=== PATIENT | male | born 1960 | race Caucasian/White ===

== ENCOUNTER 2018-03-13 22:03 | Inpatient (IN) | payer OTHER ==
[2018-03-13 22:56] LABS: Basophils # (A) 0.1 k/uL (0-0.2); Basophils % (A) 0 %; Eosinophils # (A) 0.2 k/uL (0-0.7); Eosinophils % (A) 2 %; HGB 12.5 gm/dL (13.0-17.5); Lymphocytes # (A) 1.3 k/uL (1.0-4.8); Lymphocytes % (A) 9 %; MCH 30.7 pg (25.0-35.0); MCV 93.1 fL (80.0-100.0); Mean Platelet Volume 6.2; Monocytes # (A) 0.7 k/uL (0-1.0); Monocytes % (A) 5 %; Neutrophils # (A) 12.5 k/uL (1.3-7.7); Neutrophils % (A) 83 %; Platelet Count 351 k/uL (150-450); RBC 4.08 m/uL (4.30-5.90); RDW 12.6 % (11.5-15.5); WBC 14.9 k/uL (3.8-10.6)
[2018-03-13 23:06] LABS: Partial Thromboplastin Time 23.9 sec (22.0-30.0); Prothrombin Time 9.5 sec (9.0-12.0)
--- NOTE | 2018-03-13 23:06 | XR ---
EXAMINATION TYPE: XR toes RT DATE OF EXAM: 03/13/2018 COMPARISON: NONE HISTORY: Pain and osteomyelitis TECHNIQUE: 3 views FINDINGS: There is some soft tissue swelling around the second toe. I see no fracture nor dislocation . I see no focal bone destruction. There is narrowing of the joint spaces. IMPRESSION: Soft tissue swelling. Osteoarthritis. No specific sign of osteomyelitis.
[2018-03-13 23:16] LABS: ALT 27 U/L (21-72); AST 17 U/L (17-59); Alkaline Phosphatase 51 U/L (38-126); Anion Gap 9 mmol/L; Blood Urea Nitrogen 19 mg/dL (9-20); C Reactive Protein 9.7 mg/L (<10.0); Calcium 9.3 mg/dL (8.4-10.2); Carbon Dioxide 28 mmol/L (22-30); Chloride 103 mmol/L (98-107); Glucose 116 mg/dL (74-99); Potassium 4.4 mmol/L (3.5-5.1); Sodium 140 mmol/L (137-145); Total Bilirubin 0.2 mg/dL (0.2-1.3); Total Protein 6.7 g/dL (6.3-8.2)
--- NOTE | 2018-03-13 23:19 | ED ---
Lower Extremity Injury HPI - General Chief Complaint: Extremity Injury, Lower Stated Complaint: OSTEOMYLOSIS Time Seen by Provider: 03/13/18 22:17 Source: patient, RN notes reviewed Mode of arrival: ambulatory Limitations: no limitations - History of Present Illness Initial Comments: 57-year-old male presents emergency Department chief complaint of infection to his right foot second digit. Patient states that this initially started from having sore from his work boot. Patient states he has a hammertoe. Patient states that he has been seeing a business specialist which showed he had early signs of osteomyelitis. He is currently taking Bactrim patient states he also has a [place]. Patient denies any fevers or chills. He is a nondiabetic. - Related Data Home Medications Medication Instructions Recorded Confirmed Aspirin 325 mg PO DAILY 03/13/18 03/13/18 Benazepril HCl 20 mg PO DAILY 03/13/18 03/13/18 Gabapentin [Neurontin] 300 mg PO TID 03/13/18 03/13/18 Hydrochlorothiazide 12.5 mg PO DAILY 03/13/18 03/13/18 glipiZIDE [Glucotrol] 5 mg PO DAILY 03/13/18 03/13/18 metFORMIN HCL [Glucophage] 1,000 mg PO BID 03/13/18 03/13/18 Allergies Allergy/AdvReac Type Severity Reaction Status Date / Time No Known Allergies Allergy Verified 03/13/18 22:18 Review of Systems ROS Statement: Those systems with pertinent positive or pertinent negative responses have been documented in the HPI. ROS Other: All systems not noted in ROS Statement are negative. Past Medical History Past Medical History: Diabetes Mellitus, Hypertension Additional Past Medical History / Comment(s): osteomyelitis, neuropathy to feet. History of Any Multi-Drug Resistant Organisms: None Reported Past Surgical History: No Surgical Hx Reported Past Psychological History: No Psychological Hx Reported Smoking Status: Current every day smoker Past Alcohol Use History: None Reported Past Drug Use History: Cocaine, Marijuana General Exam Limitations: no limitations General appearance: alert, in no apparent distress Head exam: Present: atraumatic, normocephalic, normal inspection Respiratory exam: Present: normal lung sounds bilaterally. Absent: respiratory distress, wheezes, rales, rhonchi, stridor Cardiovascular Exam: Present: regular rate, normal rhythm, normal heart sounds. Absent: systolic murmur, diastolic murmur, rubs, gallop, clicks Extremities exam: Present: other (Right foot second digit there is noted erythema from the MTP region to the distal tip, there is no open sore the dorsal aspect approximately 1 cm in diameter) Skin exam: Present: warm, dry Course Vital Signs 03/13/18 03/13/18 22:06 23:39 Temperature 98.5 F Pulse Rate 84 80 Respiratory 17 16 Rate Blood Pressure 138/72 137/72 O2 Sat by Pulse 97 98 Oximetry Medical Decision Making - Lab Data Result diagrams: 03/13/18 22:43 03/13/18 22:43 Lab Results 03/13/18 03/13/18 03/13/18 Range/Units 22:43 22:43 22:43 WBC 14.9 H (3.8-10.6) k/uL RBC 4.08 L (4.30-5.90) m/uL Hgb 12.5 L (13.0-17.5) gm/dL Hct 38.0 L (39.0-53.0) % MCV 93.1 (80.0-100.0) fL MCH 30.7 (25.0-35.0) pg MCHC 33.0 (31.0-37.0) g/dL RDW 12.6 (11.5-15.5) % Plt Count 351 (150-450) k/uL Neutrophils % 83 % Lymphocytes % 9 % Monocytes % 5 % Eosinophils % 2 % Basophils % 0 % Neutrophils # 12.5 H (1.3-7.7) k/uL Lymphocytes # 1.3 (1.0-4.8) k/uL Monocytes # 0.7 (0-1.0) k/uL Eosinophils # 0.2 (0-0.7) k/uL Basophils # 0.1 (0-0.2) k/uL PT (9.0-12.0) sec INR (<1.2) APTT (22.0-30.0) sec Sodium 140 (137-145) mmol/L Potassium 4.4 (3.5-5.1) mmol/L Chloride 103 (98-107) mmol/L Carbon Dioxide 28 (22-30) mmol/L Anion Gap 9 mmol/L BUN 19 (9-20) mg/dL Creatinine 0.68 (0.66-1.25) mg/dL Est GFR (CKD-EPI)AfAm >90 (>60 ml/min/1.73 sqM) Est GFR (CKD-EPI)NonAf >90 (>60 ml/min/1.73 sqM) Glucose 116 H (74-99) mg/dL Plasma Lactic Acid Ronnell 1.1 (0.7-2.0) mmol/L Calcium 9.3 (8.4-10.2) mg/dL Total Bilirubin 0.2 (0.2-1.3) mg/dL AST 17 (17-59) U/L ALT 27 (21-72) U/L Alkaline Phosphatase 51 (38-126) U/L C-Reactive Protein 9.7 (<10.0) mg/L Total Protein 6.7 (6.3-8.2) g/dL Albumin 4.0 (3.5-5.0) g/dL 03/13/18 Range/Units 22:43 WBC (3.8-10.6) k/uL RBC (4.30-5.90) m/uL Hgb (13.0-17.5) gm/dL Hct (39.0-53.0) % MCV (80.0-100.0) fL MCH (25.0-35.0) pg MCHC (31.0-37.0) g/dL RDW (11.5-15.5) % Plt Count (150-450) k/uL Neutrophils % % Lymphocytes % % Monocytes % % Eosinophils % % Basophils % % Neutrophils # (1.3-7.7) k/uL Lymphocytes # (1.0-4.8) k/uL Monocytes # (0-1.0) k/uL Eosinophils # (0-0.7) k/uL Basophils # (0-0.2) k/uL PT 9.5 (9.0-12.0) sec INR 1.0 (<1.2) APTT 23.9 (22.0-30.0) sec Sodium (137-145) mmol/L Potassium (3.5-5.1) mmol/L Chloride (98-107) mmol/L Carbon Dioxide (22-30) mmol/L Anion Gap mmol/L BUN (9-20) mg/dL Creatinine (0.66-1.25) mg/dL Est GFR (CKD-EPI)AfAm (>60 ml/min/1.73 sqM) Est GFR (CKD-EPI)NonAf (>60 ml/min/1.73 sqM) Glucose (74-99) mg/dL Plasma Lactic Acid Ronnell (0.7-2.0) mmol/L Calcium (8.4-10.2) mg/dL Total Bilirubin (0.2-1.3) mg/dL AST (17-59) U/L ALT (21-72) U/L Alkaline Phosphatase (38-126) U/L C-Reactive Protein (<10.0) mg/L Total Protein (6.3-8.2) g/dL Albumin (3.5-5.0) g/dL Disposition Clinical Impression: Diabetic foot ulcer, Cellulitis of toe of right foot, Failure of outpatient treatment Disposition: ADMITTED IP TO THIS [facility] Condition: Stable Referrals: Nonstaff,Physician [Primary Care Provider] - 1-2 days
[2018-03-14] MEDS ORDERED: ACETAMINOPHEN TAB 325 MG TAB PO PRN (00:04)
[2018-03-14] MEDS ORDERED: PIPERACILLIN-TAZOBACTAM 3.375 GM in DEXTROSE/WATER 1 50ML.BAG IVPB STA (00:05)
[2018-03-14] MEDS ORDERED: VANCOMYCIN IV PER PHARMACY 1 EACH MISC MISCELLANE PRN (00:06)
[2018-03-14] MEDS ORDERED: GABAPENTIN 300 MG CAP PO STA (00:39)
[2018-03-14] MEDS ORDERED: VANCOMYCIN 2,000 MG in SODIUM CHLORIDE 0.9% 500 ML IVPB ONE (01:00)
[2018-03-14] MEDS ORDERED: MORPHINE SULFATE 2 MG/ML SYRINGE IVP PRN (02:06)
[2018-03-14] MEDS ORDERED: guaiFENesin-DM 100-10MG/5ML 10 ML CUP PO PRN (02:07)
--- NOTE | 2018-03-14 02:10 | P.HPIM ---
History of Present Illness H&P Date: 03/14/18 Chief Complaint: right 2nd toe swelling and pain 57-year-old male with history of diabetes mellitus and hypertension. patient presented due to worsening swelling and pain over his right second toe. He reports issues with that toe since October 2017 when he was receiving got short course of Bactrim for possible infection then he followed up with podiatry who recommended surgical amputation over the right second toe due to history of hammertoe and chronic nonhealing ulcer over the dorsum of the second toe due to older fitting shoes. Patient at that time was told that he might be having early signs of osteomyelitis however he was not receiving any antibiotics. Patient then went to [facility] for rehab he cocaine abuse and he didn't get to follow-up with podiatry. Today he noticed progressive swelling and pain of his right second toe and decided to come in here for medical attention. Patient continues to deny any fevers or chills. But he is concerned that might get further infected and causessepsis. In the emergency department x-ray of the right foot did not show any evidence of osteomyelitis. Patient was started on broad-spectrum antibiotics and admitted for further care. Patient denies any fevers or chills, denies any chest pain or trouble breathing , he reports some nasal congestion and nonproductive cough. Otherwise denies any abdominal pain nausea or vomiting denies any changes in his urinary or bowel habits denies any focal neurologic deficits. Review of Systems Pertinent positives as noted in HPI. All other systems were reviewed and are negative Past Medical History Past Medical History: Diabetes Mellitus, Hypertension Additional Past Medical History / Comment(s): osteomyelitis, neuropathy to feet. History of Any Multi-Drug Resistant Organisms: None Reported Past Surgical History: No Surgical Hx Reported Past Psychological History: No Psychological Hx Reported Smoking Status: Current every day smoker Past Alcohol Use History: None Reported Past Drug Use History: Cocaine, Marijuana Medications and Allergies Home Medications Medication Instructions Recorded Confirmed Type Aspirin 325 mg PO DAILY 03/13/18 03/13/18 History Benazepril HCl 20 mg PO DAILY 03/13/18 03/13/18 History Gabapentin [Neurontin] 300 mg PO TID 03/13/18 03/13/18 History Hydrochlorothiazide 12.5 mg PO DAILY 03/13/18 03/13/18 History glipiZIDE [Glucotrol] 5 mg PO DAILY 03/13/18 03/13/18 History metFORMIN HCL [Glucophage] 1,000 mg PO BID 03/13/18 03/13/18 History Allergies Allergy/AdvReac Type Severity Reaction Status Date / Time No Known Allergies Allergy Verified 03/13/18 22:18 Physical Exam Vitals: Vital Signs Temp Pulse Resp BP Pulse Ox 03/13/18 23:39 80 16 137/72 98 03/13/18 22:06 98.5 F 84 17 138/72 97 Intake and Output 03/13/18 03/13/18 03/14/18 14:59 22:59 06:59 Other: Weight 95.254 kg Constitutional: No acute distress, conversant, pleasant Eyes: Anicteric sclerae, moist conjunctiva, no lid-lag Pupils equal round reactive to light ENMT: NC/AT Oropharynx clear, no erythema,or exudates Neck: Supple, FROM, no masses, or JVD No carotid bruits No thyromegaly Lungs: Clear to auscultation Clear to percussion Normal respiratory effort, no accessory muscle use Cardiovascular: Heart regular in rate and rhythm, No murmurs, gallops, or rubs No peripheral edema Abdominal: Soft Nontender, no guarding, rebound or rigidity Abdomen moving with respiration Normoactive bowel sounds No hepatomegaly, No splenomegaly No palpable mass No abdominal wall hernia noted Skin: Normal temperature, tone, texture, turgor No induration No subcutaneous nodules ulceration over the dorsum of the right 2nd toe, with swelling, tenderness to the touch , and drainage of serosanguinous fluid. discoloration lilian the 2nd toe with congestion Extremities: No digital cyanosis No clubbing Pedal pulses intact and symmetrical Radial pulses intact and symmetrical No calf tenderness Psychiatric: Alert and oriented to person, place and time Appropriate affect fair judgment Neuro Muscles Strength 5/5 in all 4 extremities Sensation to light touch grossly present throughout Cranial nerves II-XII grossly intact No focal sensory deficits Lymphatics: no palpable cervical or supraclavicular , or inguinal lymph nodes Results CBC & Chem 7: 03/13/18 22:43 03/13/18 22:43 Labs: Abnormal Lab Results - Last 24 Hours (Table) 03/13/18 03/13/18 Range/Units 22:43 22:43 WBC 14.9 H (3.8-10.6) k/uL RBC 4.08 L (4.30-5.90) m/uL Hgb 12.5 L (13.0-17.5) gm/dL Hct 38.0 L (39.0-53.0) % Neutrophils # 12.5 H (1.3-7.7) k/uL Glucose 116 H (74-99) mg/dL Assessment and Plan Assessment: 57 year old male wt history of DM, HTN. admitted as inpatient with anticipated length of stay >48 hours, for diabetic foot infection of the right 2nd toe. 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 patient was admitted to [facility] for rehab due to cocaine abuse , and could not follow up for the past 2-3 weeks. today presented due to worsening swelling and pain in the right second toe Plan: diabetic foot infection of the right 2nd toe, rule out osteomyelitis local wound care podiatry consult adán and jamari pain control check ESR, CRP consider MRI of the foot leukocytosis 2/2 to above Diabetes mellitus , controlled continue with insulin sliding scale hypertension , controlled contiinue with home meds Anemia, patient denies any bleeding monitor DVT PPx heparin sc tid URI symptomatic control loratadin robitussin PRN tobacco smoking, cocaine abuse patient counseled to quit drug of abuse, nicotine replacement therapy offered Surrogate decision-maker: patient brother janell CODE STATUS:full code Discussed with: Patient, ER, RN Anticipated discharge: 48-[address]: home A total of 60 minutes was spent on the care of this complex patient more than 50 % of the time was spent in counseling and care coordination.
[2018-03-14] MEDS: PIPERACILLIN-TAZOBACTAM 3.375 GM in DEXTROSE/WATER 1 50ML.BAG IVPB SCH ×3 (07:44→20:49)
[2018-03-14 07:45] LABS: Glucose,Whole Blood 152 mg/dL (75-99)
[2018-03-14] MEDS: INSULIN ASPART 100 UNIT/ML 1 ML 10 ML VIAL SQ SCH ×4 (07:52→20:10)
[2018-03-14] MEDS: LISINOPRIL 20 MG TAB PO SCH (07:53)
[2018-03-14] MEDS: GABAPENTIN 300 MG CAP PO SCH ×3 (07:53→20:49)
[2018-03-14] MEDS: LORATADINE 10 MG TAB PO SCH (07:55)
[2018-03-14] MEDS: NICOTINE 21MG/24HR PATCH TRANSDERM SCH (07:55)
[2018-03-14] MEDS: HYDROCHLOROTHIAZIDE 12.5 MG CAP PO SCH (08:00)
[2018-03-14] MEDS: HEPARIN SODIUM,PORCINE 5,000 UNIT/ML 1 ML VIAL SQ SCH ×2 (08:00→17:02)
[2018-03-14 08:53] LABS: Basophils # (A) 0.1 k/uL (0-0.2); Basophils % (A) 0 %; Eosinophils # (A) 0.2 k/uL (0-0.7); Eosinophils % (A) 2 %; HGB 12.1 gm/dL (13.0-17.5); Lymphocytes # (A) 1.1 k/uL (1.0-4.8); Lymphocytes % (A) 9 %; MCH 30.9 pg (25.0-35.0); MCHC 32.9 g/dL (31.0-37.0); MCV 94.1 fL (80.0-100.0); Mean Platelet Volume 6.6; Monocytes # (A) 0.6 k/uL (0-1.0); Monocytes % (A) 5 %; Neutrophils # (A) 10.1 k/uL (1.3-7.7); Neutrophils % (A) 83 %; Platelet Count 322 k/uL (150-450); RBC 3.93 m/uL (4.30-5.90); RDW 12.6 % (11.5-15.5); WBC 12.2 k/uL (3.8-10.6)
[2018-03-14] MEDS ORDERED: metFORMIN 500 MG TAB PO SCH (09:00)
[2018-03-14] MEDS ORDERED: glipiZIDE 5 MG TAB PO SCH (09:00)
[2018-03-14 09:03] LABS: ALT 23 U/L (21-72); AST 14 U/L (17-59); Albumin 3.4 g/dL (3.5-5.0); Alkaline Phosphatase 47 U/L (38-126); Anion Gap 4 mmol/L; Blood Urea Nitrogen 14 mg/dL (9-20); Calcium 8.6 mg/dL (8.4-10.2); Carbon Dioxide 32 mmol/L (22-30); Chloride 104 mmol/L (98-107); Glucose 161 mg/dL (74-99); Potassium 4.5 mmol/L (3.5-5.1); Sodium 140 mmol/L (137-145); Total Bilirubin 0.3 mg/dL (0.2-1.3); Total Protein 5.8 g/dL (6.3-8.2)
[2018-03-14] MEDS: VANCOMYCIN 1,500 MG in SODIUM CHLORIDE 0.9% 250 ML IVPB SCH ×2 (10:33→17:17)
[2018-03-14] MEDS: HYDROcodone/APAP 5-325MG 1 EACH TAB PO PRN ×2 (11:30→17:00)
[2018-03-14 11:36] LABS: Glucose,Whole Blood 156 mg/dL (75-99)
--- NOTE | 2018-03-14 17:21 | CONS ---
CONSULTATION This is a 57-year-old diabetic male who is a resident of [facility] for rehabilitation for cocaine addiction. The patient came to the emergency room with history of right foot second toe redness and discomfort and pain, has been admitted for further management. The patient has been seeing a wellness consultant in [place] and he recommended toe amputation. MEDICAL HISTORY: Includes history of diabetes, hypertension. No history of coronary artery disease. PHYSICAL EXAMINATION: On examination, neck is supple. Trachea central. Chest is clear to auscultation. Abdomen is soft. Brachial radial and femoral pulses are present. Posterior tibial is palpable. Right foot second toe has a ulcer on the hammertoe with some mild redness. X-ray shows no evidence of osteo. PLAN: We continue with IV antibiotic. I have discussed with the patient if he wants to go to his on wellness consultant, that can be arranged, but he wants us to proceed with surgery for a right foot second toe amputation. Risks and complication of bleeding, infection, nonhealing have been discussed. We will arrange for amputation right foot second toe. MMODL / IJN: [id number] /
[2018-03-14 18:06] LABS: Glucose,Whole Blood 186 mg/dL (75-99)
[2018-03-14 19:49] LABS: Glucose,Whole Blood 117 mg/dL (75-99)
[2018-03-14] MEDS ORDERED: MELATONIN 3 MG TABLET PO PRN (20:13)
[2018-03-15] MEDS: HEPARIN SODIUM,PORCINE 5,000 UNIT/ML 1 ML VIAL SQ SCH ×3 (00:35→16:13)
[2018-03-15] MEDS: VANCOMYCIN 1,500 MG in SODIUM CHLORIDE 0.9% 250 ML IVPB SCH ×2 (00:35→10:05)
[2018-03-15] MEDS: PIPERACILLIN-TAZOBACTAM 3.375 GM in DEXTROSE/WATER 1 50ML.BAG IVPB SCH ×2 (04:49→14:49)
[2018-03-15 07:20] LABS: Glucose,Whole Blood 141 mg/dL (75-99)
[2018-03-15] MEDS: INSULIN ASPART 100 UNIT/ML 1 ML 10 ML VIAL SQ SCH ×3 (07:31→17:58)
[2018-03-15] MEDS ORDERED: VANCOMYCIN TROUGH DUE 1 EACH MISC MISCELLANE ONE (08:00)
[2018-03-15] MEDS: LISINOPRIL 20 MG TAB PO SCH (08:02)
[2018-03-15] MEDS: NICOTINE 21MG/24HR PATCH TRANSDERM SCH (08:02)
[2018-03-15] MEDS: LORATADINE 10 MG TAB PO SCH (08:02)
[2018-03-15] MEDS: GABAPENTIN 300 MG CAP PO SCH ×2 (08:02→16:14)
[2018-03-15] MEDS: HYDROCHLOROTHIAZIDE 12.5 MG CAP PO SCH (08:03)
[2018-03-15] MEDS: HYDROcodone/APAP 5-325MG 1 EACH TAB PO PRN ×2 (08:05→14:56)
[2018-03-15 11:05] LABS: Glucose,Whole Blood 231 mg/dL (75-99)
[2018-03-15 12:47] VITALS: BP 120/65; PULSE 61; RESP 20; TEMP 97.5
[2018-03-15] MEDS ORDERED: VANCOMYCIN 1,750 MG in SODIUM CHLORIDE 0.9% 500 ML IVPB SCH (17:00)
[2018-03-15 17:31] LABS: Glucose,Whole Blood 188 mg/dL (75-99)
--- NOTE | 2018-03-15 19:42 | P.DS ---
Providers Date of admission: 03/14/18 00:53 Expected date of discharge: 03/15/18 Attending physician: Florentino Houser MD Consults: 03/14/18 15:05 Consult Physician Urgent Consulting Provider: Arturo Mccarty Consult Reason/Comments: R 2nd toe ulcer, suspected osteomyelitis Do you want consulting provider notified?: Yes Primary care physician: Physician Nonstaff Hospital Course: The patient is a 57-year-old male with a past medical history of hypertension, diabetes, and a chronic nonhealing ulcer on the right second toe presented with complaints of worsening swelling and pain of the nonhealing ulcer. The patient was previously following with a care navigator for the ulcer however had recently missed several appointments and although was informed that he might have to get the toe amputated, had not taken any antibiotics. The patient was also told that he might have early signs of osteomyelitis. The patient had leukocytosis and was thereby admitted for suspected osteomyelitis of right second toe and was started on broad-spectrum IV antibiotics. Vascular surgery was consulted and recommended amputation of the toe. The patient had been scheduled for the procedure when the production underwriter was informed that the patient's insurance will not cover the procedure at this facility. Upon the insurance company's request, [facility] was contacted for transfer and subsequent amputation of the toe. Discussed the case with the on-call hospitalist at [facility], and the patient was subsequently accepted and transferred. Physical Examination General: Awake, alert, in no acute distress HEENT: NC/AT, anicteric sclerae, moist conjunctiva, no lid-lag, PERRLA, oropharynx clear, no erythema, exudates Cardiovascular: S1/S2 wnl, no murmurs, rubs, or gallops Lungs: Clear to auscultation, normal respiratory effort, no accessory muscle use Abdominal: Soft, nontender, non-distended, no guarding, rebound, or rigidity, normoactive bowel sounds Skin: Warm, dry Extremities: No edema or contractures, R 2nd toe ulcer on the dorsal aspect, w/ swelling and tenderness, improved Psychiatric: Alert and oriented to person, place and time, appropriate affect, Intact judgment Neuro: CN II-XI grossly intact, sensation to light touch grossly present throughout, no focal sensory deficits Discharge diagnosis: Diabetic foot ulcer of R 2nd toe, Leukocytosis, HTN, Poorly controlled DM w/ hyperglycemia A total of 45 minutes of time were spent preparing this complex discharge summary. Patient Condition at Discharge: Stable Plan - Discharge Summary Discharge Rx Participant: No New Discharge Prescriptions: Continue Gabapentin [Neurontin] 300 mg PO TID Aspirin 325 mg PO DAILY metFORMIN HCL [Glucophage] 1,000 mg PO BID glipiZIDE [Glucotrol] 5 mg PO DAILY Hydrochlorothiazide 12.5 mg PO DAILY Benazepril HCl 20 mg PO DAILY Discharge Medication List Aspirin 325 mg PO DAILY 03/13/18 [History] Benazepril HCl 20 mg PO DAILY 03/13/18 [History] Gabapentin [Neurontin] 300 mg PO TID 03/13/18 [History] Hydrochlorothiazide 12.5 mg PO DAILY 03/13/18 [History] glipiZIDE [Glucotrol] 5 mg PO DAILY 03/13/18 [History] metFORMIN HCL [Glucophage] 1,000 mg PO BID 03/13/18 [History] Follow up Appointment(s)/Referral(s): Nonstaff,Physician [Primary Care Provider] - 1-2 days Activity/Diet/Wound Care/Special Instructions: Pt to return to [place] #[phone] Patient being transferred to [facility]. Report called to LAUREN Horvath at that hospital. Discharge Disposition: OTHER INSTITUTION NOT DEFINED
== END 2018-03-15 18:45 | disposition short-term general hospital (02) | DRG 639 ==
LOC: EC 22:03 → 5MS5E 03-14 00:53
PROVIDERS: ADMIT Internal Medicine; ATTEND Internal Medicine
DX: E11.621 Type 2 diabetes mellitus with foot ulcer (principal); L97.519 Non-pressure chronic ulcer of other part of right foot with unspecified severity; E11.65 Type 2 diabetes mellitus with hyperglycemia; D64.9 Anemia, unspecified; F17.200 Nicotine dependence, unspecified, uncomplicated; I10 Essential (primary) hypertension; J06.9 Acute upper respiratory infection, unspecified; L03.031 Cellulitis of right toe; M20.40 Other hammer toe(s) (acquired), unspecified foot; Z79.82 Long term (current) use of aspirin; Z79.84 Long term (current) use of oral hypoglycemic drugs; Z79.899 Other long term (current) drug therapy; E11.42 Type 2 diabetes mellitus with diabetic polyneuropathy; F14.21 Cocaine dependence, in remission
CPT/HCPCS: 36415; 80053; 80202; 83605; 85025; 85610; 85652; 85730; 86140; 87040; 96365; 96366; 96367; 96375; 99284

== ENCOUNTER 2024-05-13 10:26 | Day surgery (SDC) | payer BC, OTHER ==
[2024-05-13] MEDS: IV FLUID CONTINUATION 1,000 ML IV ONE (11:04)
[2024-05-13] MEDS: LACTATED RINGERS 1,000 ML IV SCH (11:16)
[2024-05-13] MEDS: METOCLOPRAMIDE 5 MG/ML 2 ML VIAL IVP STA (11:17)
[2024-05-13 11:23] VITALS: TEMP 97
[2024-05-13] MEDS ORDERED: PROPOFOL 10 MG/ML 20 ML VIAL IV ONE (11:26)
[2024-05-13 11:28] LABS: Glucose,Whole Blood 191 mg/dL (70-110)
--- NOTE | 2024-05-13 11:31 | P.GSHP ---
History of Present Illness H&P Date: 05/13/24 Chief Complaint: Abnormal stool test 63-year-old male here for colonoscopy. He has not had 1 before. Recent stool test was abnormal. No bowel complaints. No family history of colon cancer. Past Medical History Past Medical History: Diabetes Mellitus, Hypertension Additional Past Medical History / Comment(s): Osteomylitis lft foot (different toe than current) treated early 2017 at [facility], NIDDM type II, bilateral feet neuropathy, RLS History of Any Multi-Drug Resistant Organisms: None Reported Past Surgical History: No Surgical Hx Reported Additional Past Surgical History / Comment(s): Nasal/septal reconstruction d/t fracture, debridement R foot 2nd toe. amp toe rt foot Past Anesthesia/Blood Transfusion Reactions: No Reported Reaction Smoking Status: Current every day smoker - Past Family History Father Family Medical History: Cancer Additional Family Medical History / Comment(s): Father of lung cancer at the age of 76yrs. He was a smoker. Mother Additional Family Medical History / Comment(s): Mother from a stomach bleed (?aneurysm per pt). She was 76yrs old. Medications and Allergies Home Medications Medication Instructions Recorded Confirmed Type Aspirin 325 mg PO DAILY 03/13/18 05/13/24 History Benazepril HCl 20 mg PO DAILY 03/13/18 05/13/24 History Gabapentin [Neurontin] 300 mg PO TID 03/13/18 05/13/24 History hydroCHLOROthiazide 12.5 mg PO DAILY 03/13/18 05/13/24 History metFORMIN HCL [Glucophage] 1,000 mg PO BID 03/13/18 05/13/24 History Fish Oil(Unk) 1 tab PO DAILY 05/12/24 05/13/24 History Multivitamins, Thera [Multivitamin 1 tab PO DAILY 05/12/24 05/13/24 History (formulary)] Pioglitazone [Actos] 30 mg PO DAILY 05/12/24 05/13/24 History Semaglutide [Ozempic] 0.25 mg SQ ORTIZ 05/12/24 05/13/24 History Allergies Allergy/AdvReac Type Severity Reaction Status Date / Time No Known Allergies Allergy Verified 05/13/24 10:42 Surgical - Exam Vital Signs Temp Pulse Resp BP Pulse Ox 97.0 F L 74 16 131/69 100 05/13/24 11:12 11/19/24 11:12 05/13/24 11:12 05/13/24 11:12 05/13/24 11:12 Physical exam: General: Well-developed, well-nourished HEENT: Normocephalic, sclerae nonicteric Abdomen: Nontender, nondistended Extremities: No edema Neuro: Alert and oriented Results - Labs Abnormal Lab Results - Last 24 Hours (Table) 05/13/24 Range/Units 11:22 POC Glucose (mg/dL) 191 H (70-110) mg/dL Assessment and Plan (1) Abnormal stool test Narrative/Plan: Will proceed with colonoscopy at this time. Current Visit: Yes Status: Acute Code(s): R19.5 - OTHER FECAL ABNORMALITIES SNOMED Code(s): 569418991
--- NOTE | 2024-05-13 11:45 | P.PCN ---
Date of Procedure: 05/13/24 Procedure(s) Performed: PREOPERATIVE DIAGNOSIS: Abnormal stool test POSTOPERATIVE DIAGNOSIS: Sigmoid colon polyp, diverticulosis PROCEDURE: Colonoscopy with snare polypectomy ANESTHESIA: MAC SURGEON: Jairo Tate M.D. SPECIMENS: Polyp ENDOSCOPIC PROCEDURE: The patient was placed on the endoscopy table in the left decubitus position. The Olympus colonoscope was inserted into the anus and passed under direct visualization to the base of the cecum. The appendiceal orifice was visualized. From that point the scope was slowly withdrawn inspecting all surfaces carefully. There were no neoplastic inflammatory or polypoid lesions throughout the cecum, ascending, transverse, and descending colon. In the sigmoid colon there was a small polyp removed using the snare with cautery technique. The remainder of the sigmoid and rectum was normal. There was mild left-sided diverticulosis. The patient's prep was suboptimal with some retained liquid and solid stool. I would estimate 80% of the mucosal surfaces were well-visualized. Digital rectal examination was normal. The patient was taken to the recovery room in stable condition per anesthesia guidelines. RECOMMENDATIONS: Await biopsy results. Will contact patient with timing of next colonoscopy.
[2024-05-13 12:07] VITALS: BP 111/57; PULSE 72; RESP 17
== END 2024-05-13 12:53 | disposition home or self-care (01) ==
LOC: ORWHC2ENDO 10:26
PROVIDERS: ATTEND Surgery
DX: D12.5 Benign neoplasm of sigmoid colon (principal); K57.30 Diverticulosis of large intestine without perforation or abscess without bleeding; I10 Essential (primary) hypertension; E11.42 Type 2 diabetes mellitus with diabetic polyneuropathy; G25.81 Restless legs syndrome; F17.210 Nicotine dependence, cigarettes, uncomplicated; F12.90 Cannabis use, unspecified, uncomplicated; Z79.84 Long term (current) use of oral hypoglycemic drugs; Z79.899 Other long term (current) drug therapy; Z98.890 Other specified postprocedural states
CPT/HCPCS: 88305; 45385; J2765; J2704